=== PATIENT | female | born 1970 | race African-American/Black ===

== ENCOUNTER 2017-11-01 14:57 | Inpatient (IN) | payer MEDICAID ==
[~2017-11-01] VITALS: Ht 152.4 cm; Wt 51.3 kg
[2017-11-01 15:13] VITALS: BP 93/60
--- NOTE | 2017-11-01 15:13 | NUR ---
LUISA MAY AND TRANSFERED TO BED 10
--- NOTE | 2017-11-01 15:15 | NUR ---
Pt sent from [facility] home, sent by Dr. Hernandez for failure to thrive. Staff reports pt has been refusing to eat and /or take meds. Pt aaox4, denies any pain. States " I havent been refusing my meds, they dont give it to me." Resp even and unlabored, denies cp or sob. Skin pale, dry to touch. Med Hx: Malignant neoplasm of thyroid, , major depressive disorder, GERD without esophagitis meds:nexium, atorvastatin, mylanta, remeron, levothyroxine, dss, tylenol, mylanta
[2017-11-01] MEDS ORDERED: NACL 0.9% 1,000 ML IV SCH (15:57)
[2017-11-01] MEDS ORDERED: ONDANSETRON 4 MG/2 ML VIAL IVP ONE (16:00)
[2017-11-01] MEDS ORDERED: MULTIVITAMIN-12 10 ML, THIAMINE 100 MG, MAGNESIUM SULFATE 50% 2,000 MG, FOLIC ACID 5 MG... IV ONE ×5 (16:00)
--- NOTE | 2017-11-01 16:01 | NUR ---
Patient being evaluated by physician at bedside.
[2017-11-01 16:50] LABS: BASOPHILS % (AUTO) 0.9 % (0.0-2.0); EOSINOPHILS # (AUTO) 0.1 K/uL (0-0.4); EOSINOPHILS % (AUTO) 1.9 % (0.0-4.0); HEMOGLOBIN 11.5 g/dL (12.0-16.0); LYMPHOCYTES # (AUTO) 1.4 K/uL (2.5-16.5); LYMPHOCYTES % (AUTO) 35.9 % (20.5-51.1); MEAN CORPUSCULAR HEMOGLOBIN 31 pg (27-31); MEAN CORPUSCULAR HGB CONC 33 g/dL (33-37); MEAN CORPUSCULAR VOLUME 92.9 fL (80-94); MONOCYTES # (AUTO) 0.2 K/uL (0.8-1.0); MONOCYTES % (AUTO) 3.9 % (1.7-9.3); NEUTROPHILS # (AUTO) 2.3 K/uL (1.8-7.7); NEUTROPHILS % (AUTO) 57.4 % (42.2-75.2); PLATELET COUNT (AUTO) 168 K/uL (140-450); RED BLOOD CELL COUNT(AUTO) 3.76 MIL/uL (4.20-5.40); RED CELL DISTRIBUTION WIDTH 17.6 % (11.6-13.7); WHITE BLOOD COUNT (AUTO) 3.9 K/uL (4.8-10.8)
[2017-11-01 16:56] LABS: ANION GAP 11.4 (8-16); CHLORIDE 101 mmol/L (98-107); CREATININE 0.7 mg/dL (0.6-1.3); GFR ARICAN-AMERICAN 116 mL/min (>90); GLUCOSE 75 mg/dL (74-106); POTASSIUM 4.4 mmol/L (3.5-5.1); SODIUM SERUM 138 mmol/L (136-145); UREA NITROGEN, BLOOD 27 mg/dL (7-18)
--- NOTE | 2017-11-01 17:00 | NUR ---
MOTHER AT BEDSIDE
[2017-11-01 17:04] LABS: ALBUMIN 3.7 g/dL (3.4-5.0); AMYLASE 130 U/L (25-115); ASPARTATE AMINOTRANSFERASE 150 U/L (15-37); LIPASE 242 U/L (73-393); TOTAL BILIRUBIN 0.6 mg/dL (0.0-1.0)
[2017-11-01 17:10] LABS: ACETONE, SERUM NEGATIVE (NEGATIVE)
[2017-11-01] MEDS ORDERED: MULTIVITAMIN-12 10 ML, THIAMINE 100 MG, MAGNESIUM SULFATE 50% 2,000 MG, FOLIC ACID 5 MG... IV SCH ×5 (17:11)
[2017-11-01] MEDS ORDERED: DOCU250S72 PO (17:39)
[2017-11-01] MEDS ORDERED: LEVO0.2T5 PO (17:39)
[2017-11-01] MEDS ORDERED: MIRT30TA PO (17:39)
[2017-11-01] MEDS ORDERED: ATOR20TA PO (17:39)
[2017-11-01] MEDS ORDERED: ACET-2619 PO (17:39)
[2017-11-01] MEDS ORDERED: ESOM40EC PO (17:39)
[2017-11-01] MEDS ORDERED: ACETAMINOPHEN 325 MG TAB PO PRN (18:35)
--- NOTE | 2017-11-01 18:35 | NUR ---
DAUGHTER AT BEDSIDE. PT IN NO APPEARENT DISTRESS.. IV PATENT WILL CONTINUE TO MONITOR
--- NOTE | 2017-11-01 19:20 | NUR ---
ADMITTED PATIENT TO THE TELE UNIT, PATIENT AWAKE ALERT ORIENTED X4, NO S/S OF DISTRESS NOTED, RESPIRATION EVEN AND UNLABORED, ON ROOM AIR. TELE MONITOR PLACED ON PATIENT, IV PATENT AND INTACT. PLAN OF CARE DISCUSSED, PATIENT VERBALIZED UNDERSTANDING, CALL LIGHT WITHIN REACH, SAFETY MEASURE ENSURED, WILL CONTINUE TO MONITOR.
--- NOTE | 2017-11-01 19:26 | NUR ---
Patient will be admitted to care of DR SALES. Admited to TELE . Will go to room 119B. Belongings list completed. Report to DENNYS LEA .
[2017-11-01 19:40] LABS: PROTHROMBIN TIME 11.3 secs (10.8-13.4)
[2017-11-01 20:00] VITALS: BP 96/62
[2017-11-01] MEDS: NACL 0.9% 1,000 ML IV SCH (20:15)
[2017-11-01] MEDS: DOCUSATE SODIUM 100 MG GELCAP PO SCH (20:17)
--- NOTE | 2017-11-01 20:21 | NUR ---
COLACE NOT ADMINISTERED, PATIENT REFUSED AND SAID," I DON'T NEED IT, I HAD LITTLE POOP EARLIER, AND I HAVEN'T HAD ANYTHING IN MY STOMACH." EDUCATION PROVIDED ON THE BENEFIT OF TAKING THE MEDICATION, AND COMPLICATIONS OF NOT TAKING THE MEDICATION, PATIENT STILL REFUSED. WILL CONTINUE TO MONITOR.
[2017-11-01 21:10] LABS: CHOL/HDL RATIO 3.3 (1-4.5); FREE T4 (FREE THYROXINE) 0.17 ng/dL (0.76-1.46); THYROID STIMULATING HORMONE 124.75 uIU/mL (0.34-3.74)
--- NOTE | 2017-11-01 22:30 | NUR ---
OFFERED SANDWICH, CRACKERS PATIENT REQUESTED. PATIENT RESTING IN BED, NO S/S OF DISTRESS NOTED, RESPIRATION EVEN AND UNLABORED, ON ROOM AIR. CALL LIGHT WITHIN REACH, SAFETY MEASURE ENSURED, WILL CONTINUE TO MONITOR.
[2017-11-02] VITALS: BP 99/66
[2017-11-02 04:00] VITALS: BP 97/68
--- NOTE | 2017-11-02 04:18 | NUR ---
ENDORSED PLAN OF CARE TO CHARGE NURSE, PATIENT IS IN STABLE CONDITION.
--- NOTE | 2017-11-02 04:18 | NUR ---
RECEIVED PT FROM [facility] FOR CONTINUITY OF CARE,V/S TAKEN.
--- NOTE | 2017-11-02 06:00 | NUR ---
RESTING QUIETLY, NO SIGNS OF DISTRESS
--- NOTE | 2017-11-02 06:52 | NUR ---
PATIENT HAS BEEN SCREENED AND CATEGORIZED HIGH NUTRITION RISK. PATIENT WILL BE SEEN WITHIN 1-2 DAYS OF ADMISSION. 11/02/17-11/03/[address]
--- NOTE | 2017-11-02 07:00 | NUR ---
DENNYS GIVE REPORT TO AM NURSE
--- NOTE | 2017-11-02 07:01 | NUR ---
RECEIVED REPORT FROM BOTTLE LABELER NURSE DENNYS AT BEDSIDE FOR CONTINUITY OF CARE. PT IS AWAKE AND ORIENTED X4. INTRODUCED SELF AND UPDATED BOARD. PT DENIES PAIN. LUNG SOUNDS CLEAR ON AUSCULTATION. NO SOB. O2 SAT 100% ON RA. SKIN WARM AND DRY. NO SIGNS OF DISTRESS. PT WENT BACK TO BED. BREAKFAST TRAY DELIVERED. PT STATED " I JUST WANT TO SLEEP RIGHT NOW." CALL LIGHT WITHIN REACH. BED IN LOW POSITION, WHEELS LOCKED. WILL CONTINUE TO MONITOR.
--- NOTE | 2017-11-02 07:05 | NUR ---
ENDORSED PT TO GENERAL MANAGER IN TRAINING NURSE VIELKA AT BEDSIDE. PT IN STABLE CONDITION. Addendum: 11/02/17 at 1925 by Janessa Osborne RN CHARTED WRONG TIME.
[2017-11-02 07:44] LABS: ANION GAP 11.8 (8-16); CARBON DIOXIDE 27.3 mmol/L (21-32); CREATININE 0.7 mg/dL (0.6-1.3); POTASSIUM 4.1 mmol/L (3.5-5.1)
[2017-11-02 07:46] LABS: EOSINOPHILS # (AUTO) 0.1 K/uL (0-0.4); EOSINOPHILS % (AUTO) 1.7 % (0.0-4.0); HEMATOCRIT 31.2 % (36-48); HEMOGLOBIN 10.4 g/dL (12.0-16.0); LYMPHOCYTES # (AUTO) 1.7 K/uL (2.5-16.5); LYMPHOCYTES % (AUTO) 37.8 % (20.5-51.1); MEAN CORPUSCULAR HEMOGLOBIN 31 pg (27-31); MEAN CORPUSCULAR HGB CONC 33 g/dL (33-37); MEAN CORPUSCULAR VOLUME 92.7 fL (80-94); MONOCYTES # (AUTO) 0.2 K/uL (0.8-1.0); MONOCYTES % (AUTO) 4.4 % (1.7-9.3); NEUTROPHILS # (AUTO) 2.5 K/uL (1.8-7.7); NEUTROPHILS % (AUTO) 55.1 % (42.2-75.2); PLATELET COUNT (AUTO) 155 K/uL (140-450); RED BLOOD CELL COUNT(AUTO) 3.36 MIL/uL (4.20-5.40); RED CELL DISTRIBUTION WIDTH 17.6 % (11.6-13.7); WHITE BLOOD COUNT (AUTO) 4.6 K/uL (4.8-10.8)
[2017-11-02 08:00] VITALS: BP 96/68
[2017-11-02 08:07] LABS: MAGNESIUM 2.5 mg/dL (1.8-2.4); PHOSPHORUS 2.5 mg/dL (2.5-4.9)
[2017-11-02] MEDS ORDERED: LEVOTHYROXINE 0.1 MG TAB PO SCH (09:00)
--- NOTE | 2017-11-02 10:00 | NUR ---
ADMINISTERED SCHEDULED MEDS. BREAKFAST TRY STILL AT BEDSIDE. PT DID NOT EAT FOOD STATED SHE IS VERY TIRED. NO SIGNS OF DISTRESS. CALL LIGHT WITHIN REACH. WILL CONTINUE TO MONITOR.
[2017-11-02] MEDS: PANTOPRAZOLE 40 MG INJ VIAL IVP SCH (10:16)
[2017-11-02] MEDS: DOCUSATE SODIUM 100 MG GELCAP PO SCH ×2 (10:16→20:25)
[2017-11-02] MEDS: NACL 0.9% 1,000 ML IV SCH (10:22)
--- NOTE | 2017-11-02 10:52 | NUR ---
11/02/17 RD INITIAL ASSESSMENT COMPLETED PLEASE REFER TO NUTRITION ASSESSMENT UNDER CARE ACTIVITY FOR ESTIMATED NUTRITIONAL NEEDS. RD RECOMMENDATIONS: 1.CONTINUE REGULAR DIET TOLERATED. -NOTE PT DID NOT EAT BREAKFAST UPON RD VISIT. 2. ENCOURAGE INCREASED ORAL INTAKE FOR ADEQUATE NUTRITION INTAKE. -WILL OBTAIN FOOD PREFERENCES DURING NEXT FOLLOW UP VISIT. 3. IF PT CONTINUES WITH POOR PO INTAKE, CONSIDER ADDING BOOST WITH MEALS TO OPTIMIZE NUTRITION INTAKE. 4. RD WILL F/U 2-3 DAYS; HIGH RISK. BUD DRAKE, RD
[2017-11-02 12:00] VITALS: BP 112/63
--- NOTE | 2017-11-02 12:58 | NUR ---
CHECKED ON PT IN ROOM. PT STATED SHE IS VERY TIRED AND WANTS TO SLEEP. PT HAD INCONTINENT URINE. CALLED CLIENT SERVICES ASSOCIATE TO CLEAN PT AND CHANGE CHUX. LUNCH TRAY AT BEDSIDE. PT STATED SHE WILL TRY TO EAT LATER. NO SIGNS OF DISTRESS. CALL LIGHT WITHIN REACH. BED IN LOW POSITION. WILL CONTINUE TO MONITOR.
[2017-11-02 16:00] VITALS: BP 97/72
--- NOTE | 2017-11-02 16:20 | NUR ---
PT RESTING IN BED. IV PUMP WAS BEEPING. FLUSHED IV TO R HAND 22G. PT TOLERATED WELL. NO SIGNS OF DISTRESS. CALL LIGHT WITHIN REACH. WILL CONTINUE TO MONITOR.
--- NOTE | 2017-11-02 17:00 | NUR ---
PT REFUSED LUNCH TRAY AND SNACKS OFFERED. PT STATED SHE WILL TRY TO EAT FOR DINNER. OFFERED PT TO CALL IF SHE DOES NOW LIKE DINNER AND CAN MAKE REQUEST ON FOOD. PT VERBALIZED UNDERSTANDING. PT LYING COMFORTABLY IN BED. CALL LIGHT WITHIN REACH. WILL CONTINUE TO MONITOR.
--- NOTE | 2017-11-02 19:05 | NUR ---
ENDORSED PT TO ASSISTANT SHIFT SUPERVISOR NURSE VIELKA AT BEDSIDE. PT IN STABLE CONDITION.
--- NOTE | 2017-11-02 19:10 | NUR ---
RECEIVED REPORT FROM DAYSUTFT NURSE FOR CONTINUITY OF CARE. PT AAOX4. NO SOB NO S/S OF DISTRESS PT ON RA. IV NOTED R HAND 22 NS 50ML HR. TELE PT. BED LOWERED CALL LIGHT WITHIN REACH WILL CONTINUE TO MONITOR.
[2017-11-02 20:00] VITALS: BP 98/67
--- NOTE | 2017-11-02 20:30 | NUR ---
PT REFUSED COLACE AND MIRTAZAPINE MEDS. WILL CONTINUE TO MONITOR.
[2017-11-02] MEDS ORDERED: ATORVASTATIN 20 MG TAB PO SCH (21:00)
[2017-11-02] MEDS ORDERED: MIRTAZAPINE 15 MG TAB PO SCH (21:00)
[2017-11-03] VITALS: BP 111/84
[2017-11-03 04:00] VITALS: BP 107/78
[2017-11-03] MEDS: LEVOTHYROXINE 0.1 MG TAB PO SCH ×2 (05:33→06:30)
--- NOTE | 2017-11-03 05:49 | NUR ---
PT REFUSED BLOOD DRAW
--- NOTE | 2017-11-03 06:45 | NUR ---
I GAVE PT THEIR LEVOTHYROXINE PILLS AND PT REQUESTED THAT I GIVE THEM TIME TO TAKE THEM. I WAITED 3 MIN, THEN TOLD HER IF SHE COULD PLEASE TAKE THEM. SHE STATED SHE WOULD TAKE. I GAVE HER ADDITIONAL 10 MIN SHE FELL BACK ASLEEP. I WOKE HER UP AND STATED SHE NEEDED TO TAKE THEM SHE REFUSED, SO I TOOK THE PILLS BACK. Addendum: 11/03/17 at 0652 by Kyung Clancy RN DISPOSED OF MEDS IN RX DESTROYER.
--- NOTE | 2017-11-03 07:25 | NUR ---
GAVE REPORT TO DAYSHIFT NURSE AT BEDSIDE FOR CONTINUITY OF CARE. WILL CONTINUE TO MONITOR.
--- NOTE | 2017-11-03 07:26 | NUR ---
RECEIVED REPORT FROM DYEING MACHINE FEEDER NURSE VIELKA AT BEDSIDE FOR CONTINUITY OF CARE. PT IS AWAKE AND ORIENTED X4. INTRODUCED SELF AND UPDATED BOARD. PT STATED SHE IS TIRED FROM LAST NIGHT AND REFUSED VITAL SIGNS AT THIS TIME. WILL TRY TO TAKE VS LATER. NO SIGNS OF DISTRESS. LUNG SOUNDS CLEAR ON AUSCULTATION. O2 SAT 100% ON RA. PT REFUSED BREAKFAST TRAY. CALL LIGHT WITHIN REACH. WILL CONTINUE TO MONITOR.
--- NOTE | 2017-11-03 07:45 | NUR ---
REPORTED TO DR. GREER THAT PT REFUSED MEDS FROM LAST NIGHT AND MORNING LABS.
[2017-11-03 08:00] VITALS: BP 111/71
[2017-11-03] MEDS: DOCUSATE SODIUM 100 MG GELCAP PO SCH (09:00)
[2017-11-03] MEDS: PANTOPRAZOLE 40 MG INJ VIAL IVP SCH (09:00)
--- NOTE | 2017-11-03 09:00 | NUR ---
PT REFUSED PROTONIX. NON ADMINISTERED. EXPLAINED RISKS AND BENEFITS. PT STILL REFUSED. STATED THE IV HURTS WHEN GIVEN. TOLD PT I CAN GIVE IT SLOWLY. PT STILL REFUSED. LYING IN BED NOW. NO SIGNS OF DISTRESS. WILL CONTINUE TO MONITOR.
[2017-11-03 09:07] LABS: TRANSFERRIN 228 mg/dL (200-370)
[2017-11-03] MEDS: NACL 0.9% 1,000 ML IV SCH (10:33)
[2017-11-03 12:00] VITALS: BP 106/72
--- NOTE | 2017-11-03 12:30 | NUR ---
REPORTED TO DR. GREER PTS HR 45 ON MONITOR. PT IS ASLEEP.
[2017-11-03] MEDS ORDERED: SYN.1 PO (12:38)
--- NOTE | 2017-11-03 13:17 | NUR ---
CALLED [facility] CONFIRMED BED 204C , TRANSPORTATION ARRANGED WITH [facility] [employer] AT 1730.
[2017-11-03 16:00] VITALS: BP 99/74
--- NOTE | 2017-11-03 17:00 | NUR ---
CALLED [facility] AND GAVE REPORT TO SHI LEA. GAVE STAIN DIPPER TIME 5:30PM
--- NOTE | 2017-11-03 17:15 | NUR ---
GAVE D/C INSTRUCTIONS. FORMS, HANDOUT, AND RX AND LABS TO PT. PT VERBALIZED UNDERSTANDING AND SIGNED FORMS. D/C IV TO R HAND 22G. IV CATHETER TIP INTACT. APPLIED DRESSING AND PRESSURE TO SITE. NO BLEEDING NOTED. PT CHANGED IN ORANGE GOWN. WAITING FOR TRANSPORTATION SLOT EDITOR.
--- NOTE | 2017-11-03 18:00 | NUR ---
CALLED [facility]. SAID THEY WERE IN A 45 -60 MIN DELAY.
--- NOTE | 2017-11-03 19:23 | NUR ---
ENDORSED PT TO HOT BLAST WORKER NURSE SAM AT BEDSIDE FOR CONTINUITY OF CARE. PT IN STABLE CONDITION.
--- NOTE | 2017-11-03 19:30 | NUR ---
PT D/C TO GO TO [facility]. GAVE REPORT TO Kingspan WindIER TRANSPORTER. REMOVED ID BAND AND TELE MONITOR. PT LEFT IN STABLE CONDITION VIA GURNEY ACCOMPANIED BY FAMILY MEMBERS AND TRANSPORTER.
[2017-11-05 07:17] LABS: FOLIC ACID > 20.00 ng/mL (>3.0)
[2017-11-05 14:03] LABS: FERRITIN 185 ng/mL (15-150)
== END 2017-11-03 19:55 | DRG 207 ==
LOC: MED 14:57 → MTU 18:38
PROVIDERS: ADMIT General Practice; ATTEND General Practice
DX: D18.09 Hemangioma of other sites (principal); N17.0 Acute kidney failure with tubular necrosis; F33.1 Major depressive disorder, recurrent, moderate; R62.7 Adult failure to thrive; K21.9 Gastro-esophageal reflux disease without esophagitis; Z85.850 Personal history of malignant neoplasm of thyroid; E89.0 Postprocedural hypothyroidism; E78.5 Hyperlipidemia, unspecified; R74.0 Nonspecific elevation of levels of transaminase and lactic acid dehydrogenase [LDH]; E86.0 Dehydration; Z87.891 Personal history of nicotine dependence; D64.9 Anemia, unspecified; R16.0 Hepatomegaly, not elsewhere classified; Z91.14 Patient's other noncompliance with medication regimen; G82.20 Paraplegia, unspecified
CPT/HCPCS: 36415; 71045; 76705; 80048; 80053; 82009; 82140; 82150; 82607; 82728; 82746; 83036; 83540; 83690; 83735; 83880; 84100; 84439; 84443; 84484; 85025; 85045; 85610; 85730; 87081; 96365; 96366; 96375; 99285; A9153; C9113; J2405; J3411; J3475; J3490; J7030; Q0092

== ENCOUNTER 2017-11-12 12:50 | Inpatient (IN) | payer MEDICAID ==
[~2017-11-12] VITALS: Ht 170.2 cm; Wt 49.0 kg
[~2017-11-12 12:50] MED LIST: ACET-2619 PO; ATOR20TA PO; DOCU250S72 PO; ESOM40EC PO; MIRT30TA PO; SYN.1 PO
[2017-11-12 12:56] VITALS: BP 104/74
[2017-11-12] MEDS ORDERED: NACL 0.9% 1,000 ML IV SCH (13:33)
[2017-11-12] MEDS ORDERED: cefTRIAXone 1,000 MG in DEXT 5% MINI-BAG PLUS 50 ML IV ONE (13:35)
[2017-11-12] MEDS ORDERED: cefTRIAXone 1,000 MG VIAL ONE (14:08)
[2017-11-12 14:17] LABS: BASOPHILS % (AUTO) 0.2 % (0.0-2.0); EOSINOPHILS # (AUTO) 0.1 K/uL (0-0.4); EOSINOPHILS % (AUTO) 0.6 % (0.0-4.0); HEMATOCRIT 34.7 % (36-48); HEMOGLOBIN 11.4 g/dL (12.0-16.0); LYMPHOCYTES # (AUTO) 1.1 K/uL (2.5-16.5); LYMPHOCYTES % (AUTO) 11.4 % (20.5-51.1); MEAN CORPUSCULAR HEMOGLOBIN 31 pg (27-31); MEAN CORPUSCULAR HGB CONC 33 g/dL (33-37); MEAN CORPUSCULAR VOLUME 93.8 fL (80-94); MONOCYTES # (AUTO) 0.4 K/uL (0.8-1.0); NEUTROPHILS % (AUTO) 83.8 % (42.2-75.2); PLATELET COUNT (AUTO) 178 K/uL (140-450); RED CELL DISTRIBUTION WIDTH 18.1 % (11.6-13.7); WHITE BLOOD COUNT (AUTO) 9.5 K/uL (4.8-10.8)
[2017-11-12 14:29] LABS: ANION GAP 12.8 (8-16); CARBON DIOXIDE 29.3 mmol/L (21-32); CREATININE 0.8 mg/dL (0.6-1.3); POTASSIUM 4.1 mmol/L (3.5-5.1)
[2017-11-12 14:31] LABS: PROTHROMBIN TIME 10.9 secs (10.8-13.4)
[2017-11-12 14:36] LABS: ALBUMIN 3.9 g/dL (3.4-5.0); TOTAL BILIRUBIN 1.9 mg/dL (0.0-1.0)
[2017-11-12] MEDS: NACL 0.9% 1,000 ML IV SCH (14:49)
[2017-11-12] MEDS ORDERED: ONDANSETRON 4 MG/2 ML VIAL IM/IVP PRN (14:50)
[2017-11-12] MEDS ORDERED: DOCUSATE SODIUM 100 MG GELCAP PO PRN (14:50)
[2017-11-12] MEDS ORDERED: ACETAMINOPHEN 325 MG TAB PO PRN (14:50)
[2017-11-12 15:35] LABS: MAGNESIUM 1.9 mg/dL (1.8-2.4); THYROID STIMULATING HORMONE 104.53 uIU/mL (0.34-3.74)
[2017-11-12 15:40] VITALS: BP 90/63
[2017-11-12] MEDS ORDERED: LEVOTHYROXINE 0.1 MG TAB PO SCH (17:20)
[2017-11-12] MEDS: CLINDAMYCIN 600 MG in DEXTROSE 5% 50 ML IV SCH ×2 (18:14→23:24)
[2017-11-12] MEDS: DOCUSATE SODIUM 100 MG GELCAP PO SCH (20:52)
[2017-11-12] MEDS ORDERED: MIRTAZAPINE 15 MG TAB PO SCH (21:00)
[2017-11-12] MEDS: ATORVASTATIN 20 MG TAB PO SCH (21:13)
[2017-11-13] VITALS: BP 94/66
[2017-11-13] MEDS: CLINDAMYCIN 600 MG in DEXTROSE 5% 50 ML IV SCH ×3 (05:35→17:54)
[2017-11-13] MEDS: LEVOTHYROXINE 0.1 MG TAB PO SCH (05:36)
[2017-11-13] MEDS: NACL 0.9% 1,000 ML IV SCH ×2 (05:39→19:25)
[2017-11-13] MEDS ORDERED: LEVOTHYROXINE 0.1 MG TAB PO SCH (06:30)
[2017-11-13 06:52] LABS: BASOPHILS % (AUTO) 0.5 % (0.0-2.0); EOSINOPHILS # (AUTO) 0.1 K/uL (0-0.4); EOSINOPHILS % (AUTO) 0.9 % (0.0-4.0); HEMATOCRIT 29.2 % (36-48); HEMOGLOBIN 9.8 g/dL (12.0-16.0); LYMPHOCYTES # (AUTO) 1.6 K/uL (2.5-16.5); MEAN CORPUSCULAR HEMOGLOBIN 31 pg (27-31); MEAN CORPUSCULAR HGB CONC 34 g/dL (33-37); MEAN CORPUSCULAR VOLUME 93.8 fL (80-94); MONOCYTES # (AUTO) 0.5 K/uL (0.8-1.0); MONOCYTES % (AUTO) 6.5 % (1.7-9.3); NEUTROPHILS # (AUTO) 5.8 K/uL (1.8-7.7); NEUTROPHILS % (AUTO) 72.1 % (42.2-75.2); PLATELET COUNT (AUTO) 160 K/uL (140-450); RED BLOOD CELL COUNT(AUTO) 3.12 MIL/uL (4.20-5.40); RED CELL DISTRIBUTION WIDTH 17.3 % (11.6-13.7)
[2017-11-13 07:25] LABS: ANION GAP 14.2 (8-16); CARBON DIOXIDE 24.4 mmol/L (21-32); CREATININE 0.8 mg/dL (0.6-1.3); POTASSIUM 3.6 mmol/L (3.5-5.1)
[2017-11-13 07:33] LABS: MAGNESIUM 1.8 mg/dL (1.8-2.4); PHOSPHORUS 3.1 mg/dL (2.5-4.9)
[2017-11-13 08:00] VITALS: BP 98/66
[2017-11-13] MEDS: DOCUSATE SODIUM 100 MG GELCAP PO SCH ×2 (08:06→20:57)
[2017-11-13 16:00] VITALS: BP 94/60
[2017-11-13] MEDS: VANCOMYCIN PER PHARMACY MC SCH ×2 (16:05→21:00)
[2017-11-13] MEDS: ATORVASTATIN 20 MG TAB PO SCH (20:57)
[2017-11-13] MEDS: VANCOMYCIN IV SCH (21:00)
[2017-11-13] MEDS: NACL 0.9% IV SCH (21:00)
[2017-11-14] VITALS: BP 87/57
[2017-11-14] MEDS: CLINDAMYCIN 600 MG in DEXTROSE 5% 50 ML IV SCH ×6 (05:07→23:50)
[2017-11-14] MEDS: LEVOTHYROXINE 0.1 MG TAB PO SCH (05:36)
[2017-11-14 08:00] VITALS: BP 84/53
[2017-11-14] MEDS: VANCOMYCIN IV SCH ×2 (08:53→20:18)
[2017-11-14] MEDS: NACL 0.9% IV SCH ×2 (08:53→20:18)
[2017-11-14] MEDS: ESCITALOPRAM 20 MG TAB PO SCH (08:53)
[2017-11-14] MEDS: VANCOMYCIN PER PHARMACY MC SCH ×2 (08:59→21:00)
[2017-11-14] MEDS: DOCUSATE SODIUM 100 MG GELCAP PO SCH ×2 (08:59→20:24)
[2017-11-14] MEDS ORDERED: HYDRAGUARD CREAM TP SCH (09:36)
[2017-11-14] MEDS: NACL 0.9% 1,000 ML IV SCH ×2 (11:21→21:49)
[2017-11-14 16:00] VITALS: BP 89/52
[2017-11-14] MEDS: ATORVASTATIN 20 MG TAB PO SCH (20:18)
[2017-11-14] MEDS: HYDRAGUARD CREAM TP SCH (20:24)
[2017-11-15] VITALS: BP 90/60
[2017-11-15] MEDS: CLINDAMYCIN 600 MG in DEXTROSE 5% 50 ML IV SCH ×4 (05:15→23:51)
[2017-11-15] MEDS: LEVOTHYROXINE 0.1 MG TAB PO SCH (06:00)
[2017-11-15] MEDS ORDERED: BUPIVACAINE-MPF 0.5% 30 ML VIAL INJ ONE (07:10)
[2017-11-15] MEDS ORDERED: PROPOFOL 200 MG/20 ML VIAL IV ONE (07:23)
[2017-11-15] MEDS ORDERED: MIDAZOLAM 2 MG/2 ML VIAL ONE (07:34)
[2017-11-15] MEDS ORDERED: fentaNYL 0.05 MG/ML VIAL ONE (07:34)
[2017-11-15] MEDS ORDERED: ONDANSETRON 4 MG/2 ML VIAL IVP PRN (07:55)
[2017-11-15] MEDS ORDERED: HYDROmorphone 1 MG/ML AMP IVP PRN (07:55)
[2017-11-15] MEDS ORDERED: LIDOCAINE MPF 1% - 5 mL VIAL 0 ML ONE (08:02)
[2017-11-15] MEDS: HYDRAGUARD CREAM TP SCH ×2 (09:00→21:00)
[2017-11-15] MEDS: NACL 0.9% IV SCH (09:00)
[2017-11-15] MEDS: ESCITALOPRAM 20 MG TAB PO SCH (09:00)
[2017-11-15] MEDS: VANCOMYCIN PER PHARMACY MC SCH ×2 (09:00→20:59)
[2017-11-15] MEDS: VANCOMYCIN IV SCH (09:00)
[2017-11-15] MEDS: DOCUSATE SODIUM 100 MG GELCAP PO SCH ×2 (09:00→20:52)
[2017-11-15 09:20] VITALS: BP 99/68
[2017-11-15 10:23] LABS: BASOPHILS % (AUTO) 0.7 % (0.0-2.0); EOSINOPHILS # (AUTO) 0.1 K/uL (0-0.4); EOSINOPHILS % (AUTO) 1.6 % (0.0-4.0); HEMATOCRIT 28.3 % (36-48); HEMOGLOBIN 9.6 g/dL (12.0-16.0); LYMPHOCYTES # (AUTO) 1.4 K/uL (2.5-16.5); MEAN CORPUSCULAR HEMOGLOBIN 31 pg (27-31); MEAN CORPUSCULAR HGB CONC 34 g/dL (33-37); MEAN CORPUSCULAR VOLUME 91.8 fL (80-94); MONOCYTES # (AUTO) 0.3 K/uL (0.8-1.0); MONOCYTES % (AUTO) 7.7 % (1.7-9.3); NEUTROPHILS # (AUTO) 2.4 K/uL (1.8-7.7); PLATELET COUNT (AUTO) 154 K/uL (140-450); RED BLOOD CELL COUNT(AUTO) 3.08 MIL/uL (4.20-5.40); RED CELL DISTRIBUTION WIDTH 17.2 % (11.6-13.7); WHITE BLOOD COUNT (AUTO) 4.2 K/uL (4.8-10.8)
[2017-11-15 11:12] LABS: ANION GAP 13.9 (8-16); CARBON DIOXIDE 26.9 mmol/L (21-32); CREATININE 0.8 mg/dL (0.6-1.3); POTASSIUM 3.8 mmol/L (3.5-5.1)
[2017-11-15] MEDS: NACL 0.9% 1,000 ML IV SCH (11:31)
[2017-11-15] MEDS: VANCOMYCIN 750 MG in DEXTROSE 5% 250 ML IV SCH (13:46)
[2017-11-15] MEDS ORDERED: FERROUS GLUCONATE 324 MG TAB PO SCH (14:30)
[2017-11-15] MEDS ORDERED: ESCI20TA47 PO (16:31)
[2017-11-15] MEDS ORDERED: CLIN300C2 PO (16:31)
[2017-11-15] MEDS ORDERED: Hydraguard TP (16:31)
[2017-11-15 17:22] VITALS: BP 94/63
[2017-11-15] MEDS: ATORVASTATIN 20 MG TAB PO SCH (21:08)
[2017-11-16] VITALS: BP 91/61
[2017-11-16] MEDS: VANCOMYCIN 750 MG in DEXTROSE 5% 250 ML IV SCH ×2 (00:31→13:29)
[2017-11-16] MEDS: NACL 0.9% 1,000 ML IV SCH (01:49)
[2017-11-16] MEDS: LEVOTHYROXINE 0.1 MG TAB PO SCH (05:35)
[2017-11-16] MEDS: CLINDAMYCIN 600 MG in DEXTROSE 5% 50 ML IV SCH ×2 (05:35→12:49)
[2017-11-16 07:52] VITALS: BP 93/61
[2017-11-16] MEDS ORDERED: FERROUS GLUCONATE 324 MG TAB PO SCH (08:00)
[2017-11-16] MEDS ORDERED: VANCOMYCIN PER PHARMACY MC PRN (08:54)
[2017-11-16] MEDS: ESCITALOPRAM 20 MG TAB PO SCH (09:00)
[2017-11-16] MEDS: HYDRAGUARD CREAM TP SCH (09:00)
[2017-11-16] MEDS: DOCUSATE SODIUM 100 MG GELCAP PO SCH (09:00)
[2017-11-16 12:12] LABS: BASOPHILS % (AUTO) 0.7 % (0.0-2.0); EOSINOPHILS # (AUTO) 0.1 K/uL (0-0.4); EOSINOPHILS % (AUTO) 1.2 % (0.0-4.0); HEMATOCRIT 29.1 % (36-48); LYMPHOCYTES # (AUTO) 1.3 K/uL (2.5-16.5); LYMPHOCYTES % (AUTO) 26.5 % (20.5-51.1); MEAN CORPUSCULAR HEMOGLOBIN 31 pg (27-31); MEAN CORPUSCULAR HGB CONC 34 g/dL (33-37); MEAN CORPUSCULAR VOLUME 90.7 fL (80-94); MONOCYTES # (AUTO) 0.3 K/uL (0.8-1.0); MONOCYTES % (AUTO) 6.9 % (1.7-9.3); NEUTROPHILS # (AUTO) 3.2 K/uL (1.8-7.7); NEUTROPHILS % (AUTO) 64.7 % (42.2-75.2); PLATELET COUNT (AUTO) 152 K/uL (140-450); RED BLOOD CELL COUNT(AUTO) 3.21 MIL/uL (4.20-5.40); RED CELL DISTRIBUTION WIDTH 17.2 % (11.6-13.7)
[2017-11-16 12:37] LABS: ANION GAP 15.3 (8-16); CARBON DIOXIDE 28.7 mmol/L (21-32); CREATININE 0.8 mg/dL (0.6-1.3)
[2017-11-16 16:00] VITALS: BP 89/60
== END 2017-11-16 19:05 | DRG 314 ==
LOC: MED 12:50 → MTU 14:55
PROVIDERS: ADMIT General Practice; ATTEND General Practice
PROC: 0Y6Q0Z3 Detachment at Left 1st Toe, Low, Open Approach (ICD-10-PCS; principal; 2017-11-15 07:30)
DX: M86.172 Other acute osteomyelitis, left ankle and foot (principal); E46 Unspecified protein-calorie malnutrition; F32.9 Major depressive disorder, single episode, unspecified; L03.032 Cellulitis of left toe; K80.20 Calculus of gallbladder without cholecystitis without obstruction; E03.9 Hypothyroidism, unspecified; E80.6 Other disorders of bilirubin metabolism; K21.9 Gastro-esophageal reflux disease without esophagitis; E78.5 Hyperlipidemia, unspecified; D64.9 Anemia, unspecified; M85.80 Other specified disorders of bone density and structure, unspecified site; R74.0 Nonspecific elevation of levels of transaminase and lactic acid dehydrogenase [LDH]; Z85.850 Personal history of malignant neoplasm of thyroid; Z91.19 Patient's noncompliance with other medical treatment and regimen; Z79.899 Other long term (current) drug therapy; Z68.1 Body mass index [BMI] 19.9 or less, adult
CPT/HCPCS: 36415; 71045; 73660; 80048; 80053; 80202; 82140; 82550; 83036; 83605; 83690; 83735; 83880; 84100; 84436; 84443; 84479; 84484; 85025; 85610; 85730; 87040; 87070; 87075; 87081; 87205; 88305; 88311; 93005; 93925; 93970; 96365; 97140; 97161-GP; 97535; 99285; J0696; J2001; J2250; J2704; J3010; J3370; J3490; J7030; J7060; Q0092